=== PATIENT | male | born 1995 | race Two or more races ===

== ENCOUNTER 2019-12-08 09:36 | Emergency (ER) | payer SELFPAY ==
[~2019-12-08] VITALS: Ht 177.8 cm; Wt 68.7 kg
[2019-12-08] MEDS ORDERED: DIPH,PERTUSS(ACELL),TET VAC/PF 0.5 ML IM-VACC ONE ×2 (10:00→10:32)
[2019-12-08] MEDS ORDERED: LIDOCAINE 1%-EPI 1:100K, 20ML SQ ONE (10:00)
--- NOTE | 2019-12-08 10:20 | NUR ---
pt to room from lobby.
--- NOTE | 2019-12-08 10:37 | NUR ---
pt in [place] at this time.
[2019-12-08] MEDS ORDERED: LIDOCAINE 1%-EPI 1:100K, 20ML ONE (10:55)
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
--- NOTE | 2019-12-08 11:25 | NUR ---
PT'S WOUND IRRIGATED BY [facility] LONGORIA AT BEDSIDE FOR SUTURE AT THIS TIME.
--- NOTE | 2019-12-08 11:40 | NUR ---
SUTURE COMPLETE BY [facility] MERCER PT TOLERATED WELL. AWAITING DC PAPERWORK FROM [facility].
[2019-12-08 11:58] VITALS: BP 110/77
--- NOTE | 2019-12-08 11:59 | NUR ---
PT A&O, RESPS EVEN AND UNLABORED, PUPILS EQUAL ROUND AND REACTIVE, 5/5/ STRENGTH TO ALL EXTREMITIES, NO DRIFT. NEURO INTACT. PT GIVEN DC INSTRUCTIONS AND SCRIPT, EDUCATED REGARDING WOUND CARE AND SUTURE REMOVAL FOLLOW UP. PT AMBULATORY TO DC DESK WITH STEADY GAIT, FRIEND AT BS TO DRIVE PT HOME.
== END 2019-12-08 12:02 | disposition home or self-care (01) ==
LOC: ED 11:30
DX: S02.2XXA Fracture of nasal bones, initial encounter for closed fracture (principal); S01.111A Laceration without foreign body of right eyelid and periocular area, initial encounter; S09.90XA Unspecified injury of head, initial encounter; X58.XXXA Exposure to other specified factors, initial encounter; Y93.89 Activity, other specified; Y92.89 Other specified places as the place of occurrence of the external cause; Y99.8 Other external cause status
CPT/HCPCS: 12011; 70450; 70486; 90471; 90715; 99285